=== PATIENT | female | born 1965 | race African-American/Black ===

== ENCOUNTER 2024-06-14 09:23 | Emergency (ER) | payer OTHER ==
[2024-06-14] MEDS ORDERED: Acetaminophen 650 MG/20.3 ML UDCUP ONE (09:45)
[2024-06-14] MEDS ORDERED: Midazolam HCl 2 mg/2 ml Vial ONE (11:21)
[2024-06-14] MEDS ORDERED: KETAMINE 100 MG/ML (5ML VIAL) ONE (11:21)
== END 2024-06-14 13:17 | disposition home or self-care (01) ==
LOC: CSHERS 09:23
DX: S82.841A Displaced bimalleolar fracture of right lower leg, initial encounter for closed fracture (principal); Z55.6 Problems related to health literacy; W17.89XA Other fall from one level to another, initial encounter; Y92.810 Car as the place of occurrence of the external cause
CPT/HCPCS: 73590; 73600; 73610; 73630; 93005; 94760; J2250; 29125; 96374; 96375; 99152; 99153

== ENCOUNTER 2025-04-05 15:15 | Outpatient (CLI) | payer OTHER, MEDICAID | END 2025-04-05 15:16 | disposition home or self-care (01) | LOC: CSHMAMMO 15:15 | PROVIDERS: ATTEND Family Medicine | DX: Z12.31 Encounter for screening mammogram for malignant neoplasm of breast (principal) | CPT/HCPCS: 77063; 77067 ==